=== PATIENT | male | born 1960 | race Two or more races ===

== ENCOUNTER 2016-07-05 07:56 | Day surgery (SDC) | payer BC ==
[~2016-07-05] VITALS: Ht 167.6 cm; Wt 79.0 kg
[2016-07-05 08:46] VITALS: Ht 167.6 cm; Wt 79.0 kg
[2016-07-05] MEDS ORDERED: TRIAMCINOLONE (08:50)
[2016-07-05] MEDS ORDERED: MVI (08:50)
[2016-07-05] MEDS ORDERED: ARNICA (08:50)
[2016-07-05 09:00] VITALS: BP 155/85; PULSE 72; RESP 18
[2016-07-05 10:25] VITALS: BP 163/99; RESP 18
--- NOTE | 2016-07-05 12:01 | GILP ---
DATE OF PROCEDURE: PROCEDURE PERFORMED: Colonoscopy with polypectomy. INDICATION: A 55-year-old male undergoing this procedure for colon cancer screening. The risks of the procedure, related and unrelated complications, anesthetic risks, alternatives discussed and inf ormed consent was obtained. DESCRIPTION OF PROCEDURE: The patient was brought to the GI lab, sedated with Versed 6 mg, fentanyl 100 mg. After optimum sedation, scope was passed with much ease into rectum, advanced through sigmo id, descending, transverse colon all the way into cecum and finally peaked into terminal ileum. Cla rity and cleanliness was good. He had a severe diverticulosis in the left side of the colon, making the colon narrower than usual. There was a polyp with a thick stalk identified at 25 cm. Polyp wa s 2 cm in diameter. We were about to do polypectomy, despite good sedation, patient was constantly moving. So we had asked the anesthesiologist's to give him propofol. The polyp was successfully sn ared and polypectomy done. Polyp was retrieved and sent for analysis. Base was well burnt out. A small stalk was left behind. Scope was then gradually withdrawn with excellent patient tolerance. IMPRESSION: 1. A 2 to 2.5 cm polyp at 25 cm with a thick stalk, successfully removed by hot snare polypectomy. 2. Severe diverticulosis, the left side of the colon, making the colon narrower than normal. 3. Negative all the way into cecum. 4. Negative terminal ileum. 5. Clarity and cleanliness was good. PLAN: Review the histopathology of the polyp. If no dysplasia, then we can repeat the colonoscopy after 3 to 5 years. Dictated By: JENIFFER OQUENDO/SHAYNA Conf#: [id number] DID#: [id number] CC: ;*EndCC*
[2016-07-05] MEDS ORDERED: MIDAZOLAM 1 MG/ML 2 ML INJ ONE ×3 (19:10)
[2016-07-05] MEDS ORDERED: FENTAnyl 50 MCG/ML VIAL ONE (19:10)
== END 2016-07-05 11:17 | disposition home or self-care (01) ==
LOC: GIL 07:56
PROVIDERS: ATTEND Internal Medicine Gastroenterology
DX: Z12.11 Encounter for screening for malignant neoplasm of colon (principal); K63.5 Polyp of colon; K57.90 Diverticulosis of intestine, part unspecified, without perforation or abscess without bleeding
CPT/HCPCS: 45385; J2250; J3010

== ENCOUNTER 2017-06-28 06:33 | Emergency (ER) | END 2017-06-28 08:06 | disposition home or self-care (01) ==